=== PATIENT | male | born 1995 | race African-American/Black ===

== ENCOUNTER 2016-10-21 10:43 | Emergency (ER) | payer OTHER ==
[~2016-10-21] VITALS: Ht 190.5 cm; Wt 88.5 kg
--- NOTE | ~2016-10-21 | EKG ---
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 : 1995 Requested By: Misael Lopez Order Number: [id number] MD: Humberto Ly Measurements Intervals Lerona Rate: 81 P: 79 TN: 150 QRS: -63 QRSD: 90 T: 32 QT: 404 QTc: 469 Interpretive Statements Sinus rhythm Leftward axis Consider early repolarization Borderline prolonged QT interval No previous ECG available for comparison Electronically Signed On 10-23-2016 13:10:29 CDT by Humberto Ly [email or web address] <ELECTRONICALLY SIGNED> By: Humberto Ly MD, [facility] 10/23/16 1310 1105 1105 Humberto Ly MD, FAC /EPI
[2016-10-21] MEDS ORDERED: NEURONTIN 300300 M1 PO (11:00)
[2016-10-21] MEDS ORDERED: VISTARIL 25 MG25 M1 PO (11:00)
[2016-10-21] MEDS ORDERED: PAXIL10 MG PO (11:01)
[2016-10-21] MEDS ORDERED: HYDROXYZINE HCL25 M1 PO (11:01)
[2016-10-21 11:17] LABS: HEMATOCRIT 46.9 % (42.0-52.0); HEMOGLOBIN 15.7 gm/dL (14.0-18.0); MCH 28.1 pg (26.0-34.0); MCHC 33.5 g/dL (28.0-37.0); MCV 83.7 fL (80.0-100.0); PLATELET COUNT 134 thou/uL (150-400); RDW 13.4 % (10.5-14.5); WBC 3.5 thou/uL (4.0-11.0)
[2016-10-21 11:32] LABS: ANION GAP 7 mmol/L (7-16); BUN 19 mg/dL (7-18); CALCIUM 8.8 mg/dL (8.5-10.1); CHLORIDE 103 mmol/L (98-107); CO2 29 mmol/L (21-32); CREATININE 0.9 mg/dL (0.7-1.3); GLUCOSE 92 mg/dL (74-106); POTASSIUM 3.7 mmol/L (3.5-5.1); SODIUM 139 mmol/L (136-145)
[2016-10-21 11:35] LABS: MANUAL DIFF YES
[2016-10-21 11:39] LABS: ALBUMIN 3.7 g/dL (3.4-5.0); ALKALINE PHOSPHATASE 90 U/L (46-116); DIRECT BILIRUBIN 0.2 mg/dL (<0.1-0.3); SGOT 48 U/L (15-37); SGPT 49 U/L (30-65); TOTAL BILIRUBIN 0.8 mg/dL (<0.1-1.0); TOTAL PROTEIN 7.7 g/dL (6.4-8.2); TROPONIN-I < 0.04 ng/mL (<0.04-0.07)
[2016-10-21 11:51] LABS: ABSOLUTE NEUTROPHILS 0.9 thou/uL (1.4-8.2); TOTAL CELL COUNT 100
[2016-10-21 11:52] LABS: ANISOCYTOSIS SLIGHT; ATYPICAL LYMPHS 3 %
[2016-10-21 13:37] LABS: AMP/METHAMP Negative (Negative); BARBITURATES Negative (Negative); BENZODIAZEPINES POSITIVE (Negative); COCAINE Negative (Negative); METHADONE Negative (Negative); OPIATES Negative (Negative); PCP Negative (Negative); THC Negative (Negative)
[2016-10-21] MEDS ORDERED: KEPPRA 500 MG500 M1 PO (13:47)
[2016-10-21 14:17] VITALS: BP 132/89
== END 2016-10-21 14:18 | disposition home or self-care (01) ==
LOC: ER 10:43
PROVIDERS: Physician Assistant
DX: R07.89 Other chest pain (principal); F10.120 Alcohol abuse with intoxication, uncomplicated; F19.10 Other psychoactive substance abuse, uncomplicated; D72.819 Decreased white blood cell count, unspecified; R06.02 Shortness of breath; F17.210 Nicotine dependence, cigarettes, uncomplicated

== ENCOUNTER 2016-11-08 13:31 | Inpatient (IN) | payer OTHER ==
[~2016-11-08] VITALS: Ht 190.5 cm; Wt 85.7 kg
[2016-11-08] VITALS (8 sets, daily range): BP systolic 141–161; BP diastolic 89–99
--- NOTE | ~2016-11-08 | D ---
[facility] [place] [address] DISCHARGE SUMMARY Name: NEHA CHILDERS Room #: 314-P [facility] IN M.R.#: [id number] Admission: 11/08/16 Attend Phys: Rui Abreu DO Discharge: 11/13/16 Date of : [birth year] Report #: [id number] THIS REPORT FOR: //name// CC: NORBERTO physician/PCP Rui Abreu DATE OF SERVICE: 11/13/2016 DISCHARGE DIAGNOSES: 1. Alcohol abuse. 2. Alcohol withdrawal with seizures. 3. Substance abuse. IMAGING DONE: Chest x-ray. CONSULTATION: Psych consultation. DISCHARGE CONDITION: Excellent. DISCHARGE MEDICATIONS: 1. P.r.n. hydroxyzine. 2. Stop taking gabapentin. 3. Stop taking Keppra. 4. Stop taking Neurontin. 5. Stop taking Paxil. REASON FOR PRESENTATION: Alcohol withdrawal. HISTORY OF PRESENT ILLNESS: A 21-year-old who presented complaining of excessive drinking. He was reported that he had seizures secondary to alcohol withdrawal. He was feeling weak. He was admitted to the hospital for further evaluation and management. HOSPITAL COURSE: The patient was placed on alcohol withdrawal protocol. Psych consultation was obtained. He had no further seizure. Psych counseled the patient about alcohol withdrawal and cessations. He tested also positive for marijuana. He was placed on thiamine, folate, banana bag and admitted to the ICU. Keppra was discontinued. Nicotine patch was applied. He remained seizure-free and maintained all of his laboratory values at target. He was discharged in a stable condition. He had a very mild elevation of his LFT that was improving by the time of the discharge, all thought to be related to alcohol abuse. DISCHARGE MEDICATION: P.r.n. Zyrtec. DISCHARGE CONDITION: Excellent. [facility] [address] [place] [address] DISCHARGE SUMMARY Name: NEHA CHILDERS Room #: 314-P [facility] IN M.R.#: [id number] Admission: 11/08/16 Attend Phys: Rui Abreu DO Discharge: 11/13/16 Date of : [birth year] Report #: [id number] Follow up with your primary care physician. DISCHARGE INSTRUCTIONS: 1. Stop smoking. 2. Stop marijuana. 3. Stop alcohol. <ELECTRONICALLY SIGNED> By: Ash Up MD 11/13/16 1548 1033 1112 Ash Up MD /nt
--- NOTE | ~2016-11-08 | EKG ---
[place] [address] 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 : 1995 Requested By: Armani Acevedo Order Number: [id number] MD: Humberto Ly Measurements Intervals Milo Rate: 103 P: 74 NM: 146 QRS: -46 QRSD: 88 T: 41 QT: 355 QTc: 465 Interpretive Statements Sinus tachycardia LAD, consider left anterior fascicular block Compared to ECG 10/21/2016 11:05:17 No significant change was found Electronically Signed On 11-09-2016 7:55:51 CDT by Humberto Ly [email or web address] <ELECTRONICALLY SIGNED> By: Humberto Ly MD, [facility] 11/09/16 0755 1429 142 Humberto Ly MD, [facility] /EPI
[~2016-11-08 13:31] MED LIST: HYDROXYZINE HCL25 M1 PO; KEPPRA 500 MG500 M1 PO; NEURONTIN 300300 M1 PO; PAXIL10 MG PO; VISTARIL 25 MG25 M1 PO
[2016-11-08 13:57] LABS: HEMATOCRIT 41.2 % (42.0-52.0); HEMOGLOBIN 14.1 gm/dL (14.0-18.0); MCH 28.1 pg (26.0-34.0); MCHC 34.1 g/dL (28.0-37.0); MCV 82.6 fL (80.0-100.0); PLATELET COUNT 327 thou/uL (150-400); RBC 4.99 mil/uL (4.50-6.00); RDW 14.5 % (10.5-14.5); WBC 2.3 thou/uL (4.0-11.0)
[2016-11-08 14:04] LABS: MANUAL DIFF YES
[2016-11-08 14:05] LABS: CALCIUM 9.2 mg/dL (8.5-10.1); CREATININE 0.9 mg/dL (0.7-1.3); POTASSIUM 3.8 mmol/L (3.5-5.1)
[2016-11-08 14:11] LABS: ALBUMIN 3.9 g/dL (3.4-5.0); TOTAL BILIRUBIN 0.2 mg/dL (<0.1-1.0); TOTAL PROTEIN 8.2 g/dL (6.4-8.2)
[2016-11-08 14:41] LABS: ABSOLUTE NEUTROPHILS 0.9 thou/uL (1.4-8.2); TOTAL CELL COUNT 100
[2016-11-08 14:42] LABS: ANISOCYTOSIS SLIGHT; POLYCHROMASIA SLIGHT
[2016-11-08 17:46] LABS: URINE BILIRUBIN NEGATIVE (Negative); URINE BLOOD NEGATIVE (Negative); URINE COLOR YELLOW; URINE GLUCOSE-RANDOM* NEGATIVE (Negative); URINE KETONES NEGATIVE (Negative); URINE NITRITE NEGATIVE (Negative); URINE PROTEIN (DIPSTICK) TRACE (Negative); URINE UROBILINOGEN 0.2 E.U./dl (0.2-1.0)
[2016-11-08 17:53] LABS: AMP/METHAMP Negative (Negative); BARBITURATES Negative (Negative); BENZODIAZEPINES POSITIVE (Negative); COCAINE Negative (Negative); METHADONE Negative (Negative); OPIATES Negative (Negative); PCP Negative (Negative); THC Negative (Negative)
[2016-11-08 18:48] LABS: CALCIUM 8.7 mg/dL (8.5-10.1); POTASSIUM 3.7 mmol/L (3.5-5.1)
[2016-11-08 18:54] LABS: ALBUMIN 3.5 g/dL (3.4-5.0); MAGNESIUM 1.5 mg/dL (1.8-2.4); PHOSPHORUS 2.5 mg/dL (2.5-4.9); TOTAL BILIRUBIN 0.3 mg/dL (<0.1-1.0); TOTAL PROTEIN 7.4 g/dL (6.4-8.2)
[2016-11-09] VITALS (16 sets, daily range): BP systolic 128–170; BP diastolic 77–134
[2016-11-09 00:30] LABS: FOLIC ACID 9.6 ng/mL (8.6-58.9)
[2016-11-09 05:11] LABS: FREE T4 1.07 ng/dL (0.82-1.77)
[2016-11-10] VITALS (10 sets, daily range): BP systolic 121–146; BP diastolic 47–102
[2016-11-10 05:14] LABS: CALCIUM 9.2 mg/dL (8.5-10.1); CREATININE 0.9 mg/dL (0.7-1.3); MAGNESIUM 1.6 mg/dL (1.8-2.4); PHOSPHORUS 4.3 mg/dL (2.5-4.9); POTASSIUM 3.7 mmol/L (3.5-5.1)
[2016-11-10] MEDS ORDERED: NEURONTIN 300300 M1 PO (21:00)
[2016-11-10] MEDS ORDERED: VISTARIL 25 MG25 M1 PO (21:00)
[2016-11-10] MEDS ORDERED: PAXIL10 MG PO (21:03)
[2016-11-10] MEDS ORDERED: KEPPRA 500 MG500 M1 PO (21:04)
[2016-11-11 04:00] VITALS: BP 127/84
[2016-11-11 06:06] LABS: CALCIUM 9.2 mg/dL (8.5-10.1); CREATININE 0.8 mg/dL (0.7-1.3); POTASSIUM 3.7 mmol/L (3.5-5.1)
[2016-11-11 07:26] VITALS: BP 120/90
[2016-11-11 16:47] VITALS: BP 131/74
[2016-11-11 20:30] VITALS: BP 147/87
[2016-11-12 04:30] VITALS: BP 134/84
[2016-11-12 09:15] VITALS: BP 133/84
[2016-11-12 16:40] VITALS: BP 142/80
[2016-11-12 20:00] VITALS: BP 108/64
[2016-11-13 04:00] VITALS: BP 134/95
[2016-11-13 05:15] LABS: HEMATOCRIT 44.3 % (42.0-52.0); HEMOGLOBIN 14.8 gm/dL (14.0-18.0); MCH 28.5 pg (26.0-34.0); MCHC 33.4 g/dL (28.0-37.0); MCV 85.2 fL (80.0-100.0); RBC 5.2 mil/uL (4.50-6.00); RDW 14.9 % (10.5-14.5); WBC 7.3 thou/uL (4.0-11.0)
[2016-11-13 05:18] LABS: ALBUMIN 3.8 g/dL (3.4-5.0); CREATININE 1.1 mg/dL (0.7-1.3); POTASSIUM 4.2 mmol/L (3.5-5.1); TOTAL BILIRUBIN 0.2 mg/dL (<0.1-1.0); TOTAL PROTEIN 8.1 g/dL (6.4-8.2)
[2016-11-13 08:50] VITALS: BP 112/60
[2016-11-13 14:09] VITALS: BP 112/60
== END 2016-11-13 15:13 | disposition home or self-care (01) | DRG 897 ==
LOC: ER 13:31 → EROBS 15:18 → ICU 15:18 → 3N 11-10 12:15
PROVIDERS: Emergency Medicine; Family Medicine; Hospitalist
DX: F10.239 Alcohol dependence with withdrawal, unspecified (principal); F17.210 Nicotine dependence, cigarettes, uncomplicated; F12.10 Cannabis abuse, uncomplicated; I10 Essential (primary) hypertension; F41.9 Anxiety disorder, unspecified; F32.9 Major depressive disorder, single episode, unspecified; Y90.0 Blood alcohol level of less than 20 mg/100 ml; Z79.899 Other long term (current) drug therapy; Z71.6 Tobacco abuse counseling; Z71.51 Drug abuse counseling and surveillance of drug abuser; Z59.0 Homelessness
CPT/HCPCS: 10078; 10096